=== PATIENT | female | born 1985 | race Caucasian/White ===

== ENCOUNTER 2017-02-13 22:10 | Emergency (ER) | payer MEDICAID ==
[~2017-02-13] VITALS: Ht 167.6 cm; Wt 112.6 kg
[~2017-02-13 22:10] MED LIST: ESCI20TA10 PO; FENO48TA16 PO; GABA300C10 PO; LORA2TAB99 PO; SIMV5TAB5 PO
[2017-02-13 22:15] VITALS: BP 146/91
[2017-02-13] MEDS ORDERED: DEXAMETHASONE 4 MG TABLET PO STA (22:42)
[2017-02-13] MEDS ORDERED: DEXAMETHASONE 4 MG TABLET ONE ×2 (22:47→22:53)
== END 2017-02-13 23:03 | disposition home or self-care (01) ==
LOC: ED 22:49
DX: J20.9 Acute bronchitis, unspecified (principal); J02.8 Acute pharyngitis due to other specified organisms; H92.03 Otalgia, bilateral; F17.210 Nicotine dependence, cigarettes, uncomplicated
CPT/HCPCS: 99283

== ENCOUNTER 2017-06-18 14:04 | Emergency (ER) | payer MEDICAID ==
[~2017-06-18] VITALS: Ht 167.6 cm; Wt 107.8 kg
[2017-06-18 14:12] VITALS: BP 124/87
[2017-06-18] MEDS ORDERED: HYDROcodone/APAP 5/325 TABLET ONE (14:43)
[2017-06-18] MEDS ORDERED: HYDROcodone/APAP 5/325 TABLET PO ONE (15:00)
== END 2017-06-18 15:26 | disposition home or self-care (01) ==
LOC: ED 15:10
DX: S60.221A Contusion of right hand, initial encounter (principal); S20.219A Contusion of unspecified front wall of thorax, initial encounter; Y04.0XXA Assault by unarmed brawl or fight, initial encounter; Y93.89 Activity, other specified; Y99.8 Other external cause status; Y92.009 Unspecified place in unspecified non-institutional (private) residence as the place of occurrence of the external cause
CPT/HCPCS: 71010; 99284

== ENCOUNTER 2018-11-08 09:53 | Emergency (ER) | payer MEDICAID ==
[~2018-11-08] VITALS: Ht 167.6 cm; Wt 94.0 kg
[2018-11-08 11:38] LABS: BASOPHILS # (AUTO) 0.02 x10^3/uL (0-0.1); BASOPHILS % (AUTO) 1 % (0-1); EOSINOPHILS # (AUTO) 0.07 x10^3/uL (0-0.4); EOSINOPHILS % (AUTO) 2 % (1-7); LYMPHOCYTES # (AUTO) 1.56 x10^3/uL (1-3.4); LYMPHOCYTES % (AUTO) 36 % (22-44); MD NO; MEAN CORPUSCULAR HEMOGLOBIN 30.8 pg (27.0-34.8); MEAN CORPUSCULAR HGB CONC 34.2 g/dL (32.4-35.8); MEAN CORPUSCULAR VOLUME 90.1 fL (80-100); MEAN PLATELET VOLUME 8.6 fL (7.4-10.4); MONOCYTES # (AUTO) 0.44 x10^3/uL (0.2-0.8); MONOCYTES % (AUTO) 10 % (2-9); NEUTROPHILS # (AUTO) 2.29 x10^3/uL (1.8-6.8); NEUTROPHILS % (AUTO) 52 % (42-75); PLATELET COUNT 271 x10^3/uL (130-400); RED BLOOD COUNT 4.57 x10^6/uL (3.82-5.3); RED CELL DISTRIBUTION WIDTH 12.9 % (9.6-15.2)
[2018-11-08 11:44] LABS: ALANINE AMINOTRANSFERASE 28 U/L (12-78); ALBUMIN 3.5 g/dL (3.4-5.0); ANION GAP 5 mmol/L (5-15); CALCIUM 9.1 mg/dL (8.5-10.1); CHLORIDE 109 mmol/L (98-107); CREATININE 0.77 mg/dL (0.55-1.02)
[2018-11-08 11:47] LABS: ALKALINE PHOSPHATASE 103 U/L (45-117); BILIRUBIN,TOTAL 0.4 mg/dL (0.2-1.0); TOTAL PROTEIN 6.9 g/dL (6.4-8.2)
[2018-11-08 12:00] VITALS: BP 112/70
== END 2018-11-08 12:37 | disposition home or self-care (01) ==
LOC: ED 10:37
DX: L04.8 Acute lymphadenitis of other sites (principal); M77.9 Enthesopathy, unspecified; F32.9 Major depressive disorder, single episode, unspecified; F43.10 Post-traumatic stress disorder, unspecified
CPT/HCPCS: 36415; 71046; 80053; 85025; 99284